=== PATIENT | female | born 1995 | race Two or more races ===

== ENCOUNTER 2019-03-31 19:48 | Emergency (ER) | payer SELFPAY ==
[~2019-03-31] VITALS: Ht 165.1 cm; Wt 55.3 kg
--- NOTE | 2019-03-31 20:39 | NUR ---
seen and examined by PCA
[2019-03-31] MEDS ORDERED: ACETAMINOPHEN ES 500 MG TABLET ONE (20:43)
[2019-03-31] MEDS ORDERED: ONDANSETRON 4 MG TAB.RAPDIS ONE (20:43)
--- NOTE | 2019-03-31 20:46 | NUR ---
PT CAME TO ER BED 2 C/O NAUSEA AND LOWER ABDOMINAL PAIN. AAOX4. NO SOB. BREATHING EVENLY AND UNLABORED. CONNECTED TO MONITOR.
[2019-03-31 20:56] LABS: APPEARANCE,URINE Clear (CLEAR); BILIRUBIN,URINE Negative (NEGATIVE); BLOOD, URINE Small Ery/uL (NEGATIVE); COLOR,URINE Yellow (YELLOW); KETONES,URINE Negative (NEGATIVE); LEUKOCYTE ESTERASE ,URINE Negative (NEGATIVE); NITRITE, URINE Negative (NEGATIVE); PROTEIN,URINE Negative (NEGATIVE); UGLUCOSE Negative (NEGATIVE); UROBILINOGEN,URINE 0.2 EU/dL (0.2)
[2019-03-31] MEDS ORDERED: ONDANSETRON 4 MG TAB.RAPDIS SL ONE (21:00)
[2019-03-31] MEDS ORDERED: ACETAMINOPHEN ES 500 MG TABLET PO ONE (21:00)
[2019-03-31 21:08] LABS: BACTERIA,URINE Few /HPF (None Seen); SQUAMOUS EPITHELIAL CELL,UR Few /HPF (None Seen); WBC,URINE 0-2 /HPF (0-3)
--- NOTE | 2019-03-31 21:27 | NUR ---
Patient discharged to home in stable condition. Written and verbal after care instructions given. Patient verbalizes understanding of instruction.
[2019-03-31 21:28] VITALS: BP 121/64
== END 2019-03-31 21:28 | disposition home or self-care (01) ==
LOC: ER 19:53
DX: B34.9 Viral infection, unspecified (principal); R11.0 Nausea
CPT/HCPCS: 81001; 84703; 99283; Q0162; 81000-TC